=== PATIENT | male | born 1950 | race Caucasian/White ===

== ENCOUNTER 2021-04-02 14:58 | Emergency (ER) | payer MEDICARE, SELFPAY ==
[2021-04-02 15:11] VITALS: BP 140/84; PULSE 81; RESP 16; TEMP 37.2; O2SAT 97
--- NOTE | 2021-04-02 16:00 | DI.CT_ITS ---
Exam(s) CT THORACIC LUMBAR SPINE WO EXAM: CT THORACIC LUMBAR SPINE WO CLINICAL HISTORY: Hx L1 Fx, R/O Worsening, Tingling in toes. TECHNIQUE: Imaging Protocol: Axial computed tomography images with coronal and sagittal reformatted images were created and reviewed. CONTRAST MATERIAL: None COMPARISON: No exams were available for comparison FINDINGS: CT THORACIC SPINE WITHOUT CONTRAST: There is no evidence of compression fracture nor listhesis. No lytic osseous lesions. No blastic os seous lesions. No significant scoliosis. At the T 7-T8 level there is a left paracentral calcified disc herniation which extends posteriorly 9 millimeters and impinges upon the central-left side of the thoracic spinal cord. Also calcified dis c protrusions evident at T8-T9 and T9-T10 levels. There is also right paracentral narrowing of the c anal at T10-T11 level due to posterior osteophytic ridging there is also a large central-left paracen tral partially calcified disc herniation at the T12-L1 level which extends posteriorly 8 millimeters, is approximately 12 millimeters wide, and results in significant impingement upon the thecal sac at this level. This is typically the level of the conus medullaris. CT LUMBAR SPINE WITHOUT CONTRAST: There is disc bulging at L1-2 and L2-3 levels. There is moderate spinal canal stenosis at L3-4 and L 4-5 levels due to annular bulging, short AP dimensions the pedicles and facet degenerative changes. Also an element of ligamentum flavum hypertrophy. Sacrum and sacral canal appear unremarkable. Sacr oiliac joints appear unremarkable. No lytic osseous lesions. IMPRESSION: Significant multilevel disc herniations as described above in thoracic spinal column. Recommend foll ow-up MRI. Multilevel degenerative disc disease and spinal canal stenosis at L3-4 and L4-5 levels.. RADIATION DOSE DELIVERED: 1,428.04mGy.cm Total DLP DATA REPOSITORY: All CT scans at this facility are submitted to the National Radiology Data Registry (NRDR) Dose Index Registry (DIR) with the [employer] (A[employer]). RADIATION OPTIMIZATION: All CT scans at this facility use at least one of these dose optimization te chniques: automated exposure control; mA and/or kV adjustment per patient size (includes targeted exa ms where dose is matched to clinical indication); or iterative reconstruction.
--- NOTE | 2021-04-02 16:02 | ED.GENADUL_ITS ---
Discharge Plan Disposition Patient Disposition: HOME Condition: Good Discharge Details Clinical Impression: Compression fracture, Herniated disc Primary Care Provider: Unknown,Unknown ED Provider: Wanda Wallis Home Meds and New Rx's Prescriptions: New oxycodone 5 mg tablet 5 mg PO Q8H PRNQty: 7 RF: 0 Continued lamotrigine [Lamictal] 200 mg Tablet 200 mg PO DAILY RF: 0 trazodone 50 mg Tablet 100 mg PO DAILY RF: 0 atorvastatin 10 mg Tablet 10 mg PO DAILY RF: 0 lisinopril 10 mg Tablet 10 mg PO DAILY RF: 0 omeprazole 20 mg Capsule,Delayed Release(Dr/Ec) 20 mg PO DAILY RF: 0 bupropion HCl [Wellbutrin XL] 300 mg Tablet Extended Release 24 Hr 300 mg PO DAILY RF: 0 Zyrtec 10 mg Capsule 10 mg PO DAILY RF: 0 Discharge Instructions Additional Instructions: Please take the CD copies to your primary care physician, you may or may not need an MRI of depression You may take pain medication as needed This medication is addictive and can make you constipated MiraLAX daily while you are on this medication Return with progression of strength or sensation change, changes in bowel or bladder, or should you have new or worsening complaints Discharge Data Discharge Date/Time-TO BE ENTERED AT DEPARTURE: 04/02/21 20:56 Medical Decision Making <Sharmaine Malagon - Last Filed: 04/03/21 08:27> 70-year-old male presents to the ER chief complaint of tingling in his bilateral toes which began yesterday. Patient has a history of a fall off approximately 3 feet from a ladder landing on the left side of his buttock resulting in an L1 fracture this occurred 1 week ago . He was seen at a [facility] in [place] and had a CT T and L-spine without contrast. He did bring the CT result. He denies any loss of bowel or bladder control, no saddle anesthesia he does report that it did take him approximately 1 week to have a bowel movement but he has had a bowel movement since. He denies any problems urinating or burning with urination or urinary incontinence. He denies any repetitive falls. He has been taking a gram of Tylenol which has relieved his back pain. CT T and L-spine ordered due to new onset of radiculopathy tingling in bilateral feet and to compare results. Did inquire if MRI is available they are not available at this time. Informed patient and family on plan of care they are in agreement and verbalized understanding. Care is to be handed off to oncoming provider MAKSIM Cardenas pending CT results. <MAKSIM Cardenas - Last Filed: 04/02/21 22:22> On CT scan, patient has what looks like some cord compression and conus compression from L1 disc herniation CT scan was ordered although MRI would be preferablereferable access this is not available, there is no indication for emergent MRI based on the clinical exam Patient has a relatively nonfocal neurological exam and area of paresthesias is not match with a dermatomal pattern, patient is ambulatory with steady gait without weakness or additional sensation change He has no signs or symptoms of cauda equina syndrome I did discuss the case with Freddy Pat, neurosurgery and he does not feel any additional intervention is necessary at this time aside from outpatient follow- up Patient was given a small amount of opiate analgesia He actually has an appointment scheduled with When he arrived home in [facility] on Thursday He is given very low threshold to return should he have new or worsening complaints and discharged home ambulatory with steady gait Virtual radiology results reviewed by me Medical Records Medical records reviewed: Yes I reviewed the patient's medical records. Lab Data Lab results reviewed: Yes I reviewed the patient's lab results. HPI <Sharmaine Malagon - Last Filed: 04/03/21 08:27> General Mode of arrival: ambulatory . Date/Time Provider Initiated Documentation: 04/02/21 15:50 . Limitations to Documentation: no limitations . Information obtained by: patient and family . HPI Narrative: 70-year-old male presents to the ER chief complaint of tingling in his bilateral toes which began yesterday. Patient has a history of a fall off approximately 3 feet from a ladder landing on the left side of his buttock resulting in an L1 fracture this occurred 1 week ago . He was seen at a [facility] in [place] and had a CT T and L-spine without contrast. He did bring the CT result. He denies any loss of bowel or bladder control, no saddle anesthesia he does report that it did take him approximately 1 week to have a bowel movement but he has had a bowel movement since. He denies any problems urinating or burning with urination or urinary incontinence. He denies any repetitive falls. He has been taking a gram of Tylenol which has relieved his back pain. Related Data Home Medications Medication Instructions Recorded Confirmed Zyrtec 10 mg PO DAILY 04/02/21 04/02/21 atorvastatin 10 mg PO DAILY 04/02/21 04/02/21 bupropion HCl [Wellbutrin XL] 300 mg PO DAILY 04/02/21 04/02/21 lamotrigine [Lamictal] 200 mg PO DAILY 04/02/21 04/02/21 lisinopril 10 mg PO DAILY 04/02/21 04/02/21 omeprazole 20 mg PO DAILY 04/02/21 04/02/21 oxycodone 5 mg PO Q8H PRN #7 tab 04/02/21 trazodone 100 mg PO DAILY 04/02/21 04/02/21 Previous Rx's Medication Instructions Recorded oxycodone 5 mg PO Q8H PRN #7 tab 04/02/21 Allergies Allergy/AdvReac Type Severity Reaction Status Date / Time cat dander Allergy Uncoded 04/02/21 15:18 General Stated Complaint: Nk/Back Pain VIANEY: 3 Review of Systems <Sharmaine Malagon - Last Filed: 04/03/21 08:27> All systems reviewed & are unremarkable except as noted in HPI and below Constitutional Constitutional: Denies frequent falls and Denies headache(s) ENT Ears, Nose, Mouth, and Throat: Denies dizziness and Denies headache(s) Musculoskeletal Musculoskeletal: Reports numbness and Reports tingling (Bilateral planter surface of feet) Neurologic Neurologic: Denies confusion, Denies dizziness, Denies frequent falls, Denies headache(s), Denies lack of coordination, Denies localized weakness, Reports numbness and Reports tingling (Bilateral planter surface of feet) Psychiatric Psychiatric: Denies confusion PFSH <Sharmaine Malagon - Last Filed: 04/03/21 08:27> Social History Smoking/Tobacco Use Status: Former Tobacco Use Smoking risk assessment performed?: Yes Substance use type: does not use Exam <Sharmaine Malagon - Last Filed: 04/03/21 08:27> Narrative Exam Narrative: Constitutional: Alert and oriented x3. Appears stated age. Normal body habitus. Head: Normocephalic, no trauma. Eyes: Pupils PERRL, Red reflex noted, EOM's intact. Eyelids symmetrical without lesions, discharge, or swelling. Chest: RRR, Normal S1, S2, distal pulses intact. Resp: Lungs clear to auscultation bilaterally, no wheezes, rales, or rhonchi. Abdomen: Soft, non-distended, Normoactive bowel sounds all 4 quads. Musculoskeletal: Normal gait, 5/5 strength to all four extremities. Skin: No suspicious rashes or lesions. Capillary refill less than 2 sec. Neurologic: Cranial nerves II-XII intact. Alert and oriented x 3. Motor: No deficits noted. Sensory: Intact bilaterally all 4 extremities. Reflexes: DTR's intact bilaterally.. Intact dorsiflexion and pedal flexion bilaterally. Negative straight leg test bilaterally. Hematologic/Lymphatic: No ecchymosis, no lymphadenopathy. Course <Sharmaine Malagon - Last Filed: 04/03/21 08:27> Vital Signs Vital signs: Vital Signs Temperature 37.2 C 04/02/21 15:11 Pulse 81 04/02/21 15:11 Respiratory Rate 16 04/02/21 15:11 Blood Pressure 140/84 04/02/21 15:11 Pulse Oximetry 97 04/02/21 15:11 Temperature 37.2 C 04/02/21 15:11 Temperature Source Skin 04/02/21 15:11 Pulse 81 04/02/21 15:11 Respiratory Rate 16 04/02/21 15:11 Respiratory Effort Non-Labored 04/02/21 15:11 Blood Pressure 140/84 04/02/21 15:11 Blood Pressure Position Sitting 04/02/21 15:11 Pulse Oximetry 97 04/02/21 15:11 Oxygen Delivery Method Room Air 04/02/21 15:11 Oxygen Flow Rate 0 04/02/21 15:11 Pain Level 8 04/02/21 15:11 Sign Out <Sharmaine Malagon - Last Filed: 04/03/21 08:27> Sign Out Data: Sign Out Comment: Pending CT T-L spine, expected dispo, DC Last updated by Sharmaine Malagon at 04/02/21 16:51 PAWSS <Sharmaine Malagon - Last Filed: 04/03/21 08:27> Have you Been Recently Intoxicated or Drunk Within the Last 30 days?: No Have you Ever Experienced Previous Episodes of Alcohol Withdrawal?: No Have you ever Experienced Withdrawal Seizures?: No Have you ever Experienced Delirium Tremens(DT)s?: No Have you ever undergone Alcohol Rehabilitation Treatment (i.e, inpt ot outpatient treatment programs)?: No Have you ever Experienced Blackouts?: No Have you ever Combined Alcohol with other Downers within the last 90 days?: No Have you ever Combined Alcohol with any other Substance of Abuse during the last 90 days?: No Positive Blood Alcohol level on Presentation? [PCS.BAL]: No Evidence of Increased Autonomic Activity (i.e. HR>120, tremor, sweating, agitation, nausea)?: No Result: 0
[2021-04-02] MEDS: Acetaminophen 325 MG TAB 650 MG PO (17:44)
--- NOTE | 2021-04-02 17:53 | DI.VRAD_ITS ---
PROCEDURE INFORMATION: Exam: CT Thoracic Spine Without Contrast Exam date and time: 04/02/2021 4:02 PM Age: 70 years old Clinical indication: Other: HX l1 FX, R/O worsening, tingling in toes TECHNIQUE: Imaging protocol: Computed tomography images of the thoracic spine without contrast. Total images: 3369 Radiation optimization: All CT scans at this facility use at least one of these dose optimization techniques: automated exposure control; mA and/or kV adjustment per patient size (includes targeted exams where dose is matched to clinical indication); or iterative reconstruction. COMPARISON: No relevant prior studies available. FINDINGS: Vertebrae: There is no significant or acute compression deformity. There are small Schmorl's nodes involving the T9, T10 and T11 vertebral bodies. There is degenerative disc space narrowing in the mid to lower thoracic spine associated with mild endplate spondylosis. There is no focal bony destruction. There is a mild scoliotic deformity. Discs/Spinal canal/Neural foramina: There is central stenosis at the C5-C6 level. Osteophytes narrow the anterior thecal sac at the C6-C7 level. At the T7-8 level there is a left paracentral calcified disc herniation which impinges upon the left side the thoracic cord. There is also a partially calcified central disc protrusion at T8-9 and T9-10. There is right paracentral osteophytic narrowing central canal at T10-11. There is a large left paracentral disc herniation resulting in cord impingement at the T12-L1. Soft tissues: No paraspinal mass. Lungs: There is subsegmental bronchiectasis within the right upper lobe of the lung. Visualized lungs are otherwise clear. IMPRESSION: 1. No acute thoracic compression fracture. 2. Central stenosis in the lower cervical spine. 3. Disc protrusions and spondylosis narrow the central canal at the T7-8 to the T10-11 level. 4. Large left paracentral disc herniation at T12-L1 resulting in cord/possible conus impingement. PROCEDURE INFORMATION: Exam: CT Lumbar Spine Without Contrast Exam date and time: 04/02/2021 4:02 PM Age: 70 years old Clinical indication: Other: HX l1 FX, R/O worsening, tingling in toes TECHNIQUE: Imaging protocol: Computed tomography images of the lumbar spine without contrast. COMPARISON: No relevant prior studies available. FINDINGS: Vertebrae: There is a chronic appearing compression deformity involving the inferior endplate of L1. Discs/Spinal canal/Neural foramina: There is disc bulging at L1-L2 and L2-L3. Disc bulging and ligamentum flavum hypertrophy results in moderate central stenosis at L3-L4 and mild central stenosis at L4-L5. There is disc bulging at L5-S1. There is mild multilevel lumbar facet arthropathy. Multilevel foraminal narrowing most significant at L3-L4. Kidneys and ureters: There is left renal scarring and a 2 cm cortical cyst. Soft tissues: No paraspinal mass. IMPRESSION: 1. Multilevel degenerative disc disease including central stenosis at L3-L4 and L4-L5. 2. L1 compression fracture which may be subacute or chronic. Dictated and Authenticated by: Yair Schilling MD. Ordering:FELA Schmid MD
[2021-04-02] MEDS: oxyCODONE 5 MG TAB PO (19:33)
== END 2021-04-02 20:56 | disposition home or self-care (01) ==
PROVIDERS: Emergency Provider Physician Assistant
DX: S32.010A Wedge compression fracture of first lumbar vertebra, initial encounter for closed fracture (principal); S33.111A Dislocation of L1/L2 lumbar vertebra, initial encounter; W11.XXXA Fall on and from ladder, initial encounter
CPT/HCPCS: 99284; 72128; 72131; 99283